=== PATIENT | male | born 1965 | race Caucasian/White ===

== ENCOUNTER 2019-04-27 10:33 | Outpatient (CLI) | payer OTHER | END 2019-04-27 11:03 | disposition home or self-care (01) | LOC: SONOGRAMA 10:33 → MAMO-SONO 11:15 | DX: Z12.5 Encounter for screening for malignant neoplasm of prostate (principal); N40.1 Benign prostatic hyperplasia with lower urinary tract symptoms; N52.8 Other male erectile dysfunction; M54.2 Cervicalgia; M15.0 Primary generalized (osteo)arthritis; S43.421A Sprain of right rotator cuff capsule, initial encounter ==

== ENCOUNTER → 2020-05-15 12:27 | Outpatient (CLI) | payer OTHER | END | disposition home or self-care (01) | LOC: LAB 12:27 | PROVIDERS: ATTEND Radiology Diagnostic Radiology | DX: N20.0 Calculus of kidney (principal) ==

== ENCOUNTER 2020-05-16 08:42 | Outpatient (CLI) | payer OTHER | END 2020-05-16 09:02 | disposition home or self-care (01) | LOC: TOM 08:42 → RAD 08:42 → TOM 09:15 | PROVIDERS: ATTEND Anesthesiology Pain Medicine | DX: N40.0 Benign prostatic hyperplasia without lower urinary tract symptoms (principal); N41.8 Other inflammatory diseases of prostate; N28.1 Cyst of kidney, acquired; S37.061A Major laceration of right kidney, initial encounter; M54.5 Low back pain ==

== ENCOUNTER 2024-11-25 07:48 | Outpatient (CLI) | payer OTHER | END 2024-11-25 08:27 | disposition home or self-care (01) | LOC: SONOGRAMA 07:48 | DX: N50.89 Other specified disorders of the male genital organs (principal); N40.1 Benign prostatic hyperplasia with lower urinary tract symptoms ==

== ENCOUNTER 2024-12-19 07:12 | Outpatient (CLI) | payer OTHER | END 2024-12-19 07:14 | disposition home or self-care (01) | LOC: TOM 07:12 | DX: N28.9 Disorder of kidney and ureter, unspecified (principal) ==